=== PATIENT | female | born 1940 | race Caucasian/White ===

== ENCOUNTER → 2016-08-22 | Outpatient (CLI) | payer OTHER | LOC: MMPC 11:11 | PROVIDERS: ATTEND Surgery | DX: K62.5 Hemorrhage of anus and rectum (principal) | CPT/HCPCS: 99212; G0463 ==

== ENCOUNTER 2016-08-30 07:54 | Day surgery (SDC) | payer OTHER ==
[~2016-08-30 07:54] MED LIST: MIDAZOLAM 5 MG/1 ML ONE; fentaNYL Inj 100 MCG/2 ML VIAL ONE
[2016-08-30] MEDS ORDERED: Lactated Ringers 1,000 ML PRIMARY IV ONE (07:58)
[2016-08-30] MEDS ORDERED: LIDOCAINE W/ SODIUM BICARB 0.5 ML SYR ONE (07:58)
[2016-08-30] MEDS ORDERED: DEXAMETHASONE PF 10 MG/1 ML VIAL ONE (08:57)
[2016-08-30] MEDS ORDERED: ONDANSETRON 4 MG/2 ML VIAL ONE (08:57)
--- NOTE | 2016-08-30 09:28 | GEN.OPNOTE ---
Colonoscopy Procedure Note Surgery Date: 08/30/16 Preoperative Diagnosis: History of colon polyps. Rectal bleeding Postoperative Diagnosis: Diverticulosis sigmoid colon Procedure: Colonoscopy Anesthesia Provider: Meli Berrios CRNA Anesthesia Type: MAC Indications: Patient has a personal history of adenomas polyps also knows little bit of rectal bleeding Findings: Prep : Excellent Cecum : Of his video colonoscopy scope inserted and guided all way to the cecum. Ileocecal valve identified along appendiceal orifice. Patient had no abnormal pathology seen Ascending : Patient had one diverticulum in the ascending: Otherwise, ascending colon was within normal limits Transverse : Transverse colon free from disease Sigmoid : Descending colon had no abnormal pathology. Sigmoid colon had diverticulosis Rectum : No rectal masses tumors also seen. Patient has some internal hemorrhoids not actively bleeding Digital Rectal Exam : A lubricated flexible colonoscope was inserted and passed to the blind end of the cecum.
[2016-08-30 10:20] VITALS: RESP 16
[2016-08-30 10:23] VITALS: TEMP 97.1
== END 2016-08-30 09:57 | disposition home or self-care (01) ==
LOC: SDSC 07:54
PROVIDERS: ATTEND Surgery
DX: K62.5 Hemorrhage of anus and rectum (principal); K57.90 Diverticulosis of intestine, part unspecified, without perforation or abscess without bleeding; Z86.010 Personal history of colon polyps
CPT/HCPCS: 00810; 45378 ×2; J2704; J3010; J1100; J2250; J2405; J7120